=== PATIENT | male | born 1945 | race Caucasian/White ===

== ENCOUNTER → 2023-03-27 08:49 | Outpatient (REF) | payer OTHER, SELFPAY | LOC: MRI 3T 08:49 | PROVIDERS: ATTENDING PHYSICIAN Pain Medicine Interventional Pain Medicine; FAMILY PHYSICIAN Family Medicine | DX: M54.16 Radiculopathy, lumbar region (principal) | CPT/HCPCS: 72148 ==

== ENCOUNTER → 2023-11-17 17:05 | Outpatient (REF) | payer OTHER, SELFPAY | LOC: RAD 17:05 | PROVIDERS: ATTENDING PHYSICIAN Specialist; FAMILY PHYSICIAN Family Medicine | DX: R10.9 Unspecified abdominal pain (principal) | CPT/HCPCS: 76770 ==

== ENCOUNTER → 2024-01-21 14:34 | Outpatient (REF) | payer OTHER, SELFPAY | LOC: RAD 14:34 | PROVIDERS: ATTENDING PHYSICIAN Physical Medicine & Rehabilitation; FAMILY PHYSICIAN Family Medicine | DX: M47.816 Spondylosis without myelopathy or radiculopathy, lumbar region (principal); M54.51 Vertebrogenic low back pain; M48.062 Spinal stenosis, lumbar region with neurogenic claudication; S32.000A Wedge compression fracture of unspecified lumbar vertebra, initial encounter for closed fracture | CPT/HCPCS: 72040; 72072; 72110 ==

== ENCOUNTER → 2024-06-22 12:02 | Outpatient (REF) | payer OTHER, SELFPAY | LOC: RAD 12:02 | PROVIDERS: ATTENDING PHYSICIAN Internal Medicine Cardiovascular Disease; FAMILY PHYSICIAN Family Medicine | DX: R06.02 Shortness of breath (principal); R05.1 Acute cough | CPT/HCPCS: 71046 ==

== ENCOUNTER → 2024-06-30 11:22 | Outpatient (REF) | payer OTHER, SELFPAY | LOC: RCS 11:22 | PROVIDERS: ATTENDING PHYSICIAN Internal Medicine Cardiovascular Disease; FAMILY PHYSICIAN Family Medicine | DX: R06.02 Shortness of breath (principal); I35.0 Nonrheumatic aortic (valve) stenosis | CPT/HCPCS: 93306 ==

== ENCOUNTER 2024-07-26 20:11 | Emergency (ER) | payer OTHER, SELFPAY ==
[2024-07-26 20:13] VITALS: BP 135/73
[2024-07-26 21:29] VITALS: BMI 24.8
[2024-07-26 21:32] VITALS: BP 126/82
[2024-07-26 22:00] VITALS: BP 141/74
--- NOTE | 2024-07-26 22:40 | ED.GENMED ---
History of Present Illness
General
Chief Complaint: Fall
Source: patient
Exam Limitations: none
Time Seen by Provider: 07/26/24 21:54
Nursing documentation reviewed up to this point in time: agreed with
History of Present Illness
History of Present Illness:
The patient is a 78-year-old male who presented following a fall. The fall occurred when he tripped, leading to a head impact. He reports hitting his head without any loss of consciousness. The patient experiences ongoing discomfort and soreness in
the chest area where he expects to find bruising or a possible fracture. X-rays and a CT scan were performed, showing no fractures or abnormalities. The patient is on the anticoagulant medication, Eloquis, due to previous pulmonary embolism and deep
vein thrombosis in the legs and lungs. Despite reporting a heart rate in the 50s, he experiences no concerning symptoms like syncope, and its noted that his typical heart rate ranges in the 60s to 70s. The EKG appears normal, and heart rate findings
are not considered to pose an immediate threat. Chest pain is absent, and the patients physical exam was unremarkable for fractures or neurologic deficits.
Past History
Past History
ED Past Medical History: CVA, GERD, HTN, Hypercholesterolemia, Other (Pericarditis, acute renal failure, C-dif, PE, Hep C (History of), Crohns, GI bleeding. Cirrhosis, Rosacea Colitis, DVT, PE) and Other ( history of pneumonia in, mini stroke,
dysphagia hiatal hernia, ecchymosis, with diverticulitis, arthritis, impaired vision and, depression, and RSD)
ED Past Surgical History: Other (knee surgery and cervical fusion x3, Has plate in the front and aspen in the back. Laparoscopic surgery for hiatal hernia)
Social History
Tobacco: Non-smoker
Alcohol: Occasional
Drug: None
Personal:
Living: with family
Employment: Disabled
Family History
Family History: Other (Mother with ovarian cancer)
Review of Systems
Review of Systems
Allergies reviewed?: Yes
All Other Systems: ROS reviewed and negative except as documented in HPI and ROS
Phy Exam
Physical Exam
Physical Exam:
GENERAL: Alert , in no apparent distress
EYE: pupils equal and reactive
NECK: Supple, no significant adenopathy.
ENT: o/p clr, mmm.
CARDIAC: Regular rate and rhythm .
LUNGS: Clear breath sounds bilaterally, no acute respiratory distress, no wheezes/rales/rhonchi
ABDOMEN: Soft, without focal tenderness, no r/g, no cvat
NEUROLOGICAL: Alert and oriented, no focal neuro deficits
SKIN: Warm and dry, skin intact.
MUSCULOSKELETAL: No edema, well perfused.
PSYCH: Normal and appropriate interaction.
Course
Orders/Labs/Results
Orders:
Orders
07/26/24 20:12
Wrist, Right 3 Views [CR Wrist - Right Min 3 Views] Urgent
Comment:
Reason For Exam: fall, pain
07/26/24 20:17
Electrocardiogram (*1) Urgent
Reason for Study: Chest Pain
07/26/24 20:18
CT Head W/o Iv Contrast Urgent
Comment:
Reason For Exam: Fall on thinners, +head strike
EKG- Treatment ONCE
07/26/24 20:27
Ribs, Left 3 View W/PA Chest CR [CR Ribs-left 3 Vw W/pa Chest] Urgent
Comment:
Reason For Exam: fall, left chest and rib pain
Vital Signs
Initial and Last Documented VS:
Initial Vital Signs
Temp Pulse Resp BP Pulse Ox
98.7 F 61 18 135/73 99
07/26/24 20:13 07/26/24 20:13 07/26/24 20:13 07/26/24 20:13 07/26/24 20:13
Last Documented Vital Signs
Temp Pulse Resp BP Pulse Ox
98.7 F 51 17 141/74 93
07/26/24 20:13 07/26/24 22:15 07/26/24 21:32 07/26/24 22:00 07/26/24 22:15
MDM/Problems Addressed
MDM/Problems Addressed:
78-year-old male presenting after mechanical fall. Did hit his head did not lose consciousness is on Eliquis for DVT. Otherwise does have some right wrist pain and left-sided rib discomfort. X-rays without signs of fracture head CT without
emergent findings or bleed. Patient well-appearing no distress here. EKG without emergent findings. Stable for outpatient management return precautions given.
*Pulse Oximetry
Patient hypoxic: no (94)
*Critical Care Note
Total Time (30-74mins, 75-104mins- exclusive of procedures): Not Applicable
ED Attending Note
-
Portions of this chart may have been created with voice recognition software.� Occasional wrong word or��sound alike� substitutions may have occurred due to the inherent limitations of voice recognition software.
Discharge Plan
Departure
Patient Disposition: Home (Routine Discharge)
Date of Disposition: 07/26/24
Time of Disposition: 22:41
Patient with high blood pressure during this ER visit?: No
Condition: Good
Covid-19: Not Applicable
Discharge Problem:
Fall, Sprain of wrist
Instructions: Preventing falls in adults
Prescriptions:
No Action
dicyclomine 10 MG capsule
10 mg PO TIDPRN PRN (Reason: Crohn's disease)
multivitamin Tablet
1 tab PO DAILY
atorvastatin 10 mg Tablet
10 mg PO DAILY
mupirocin 2 % Ointment
1 applic TOPICAL BID
Patient Comments:
started treatment on wednesday01/17/23 and was taking BID
prednisone 10 mg tablet
40 mg PO TAPER Qty: 20 0RF
Rx Instructions:
4 TABS X 2 DAYS, 3 TABS X 2 DAYS, 2 TABS X 2 DAYS, 1 TAB X 2 DAYS, THEN STOP
docusate sodium [Colace] 100 mg capsule
100 mg PO BID Qty: 1 0RF
Saccharomyces boulardii [Florastor] 250 mg capsule
250 mg PO BID Qty: 1 0RF
morphine 60 mg Tablet Extended Release
60 mg PO Q8H Qty: 21 0RF
Rx Instructions:
decrease to q12h after 5-7 days
ongoing therapy
Dx TKA
oxycodone 10 mg Tablet
10 mg PO Q4H Qty: 30 0RF
Rx Instructions:
ongoing therapy
Dx TKA
Eliquis 5 MG tablet
2.5 mg PO BID Qty: 1 1RF
Rx Instructions:
half tab 2.5mg twice daily x 3 days, then resume full 5mg bid dosing
magnesium hydroxide [Milk of Magnesia] 400 mg/5 mL suspension
30 ml PO HS PRN (Reason: Constipation) Qty: 1 0RF
Referrals:
Darion Olivia DO [Family Provider, Family Practice]
Activity Restrictions/Additional Instructions:
You came to the emergency department today after a fall. Here you had a reassuring assessment. Please rest ice compress and elevate and follow-up closely with your primary care doctor. Return for any worsening, new or concerning symptoms.
Interventions
Interventions:
*Risk Screen - Suicide Last Done: 07/26/24 20:17
*General Assessment Last Done: 07/26/24 21:36
*Neglect/Abuse Screening Last Done: 07/26/24 20:17
*ED- Fall Risk Assessment Last Done: 07/26/24 21:36
*ED COVID-19 Vaccine History Last Done: 07/26/24 21:36
ED-Musculoskeletal Assessment Last Done: 07/26/24 21:43
ED- Neurological Assessment Last Done: 07/26/24 21:43
ED-Skin Assessment Last Done: 07/26/24 21:43
Discharge Date and Time
Print Language: EAST TIMOR[place]
[2024-07-26 23:00] VITALS: BP 151/68
[2024-07-26] MEDS: TYLENOL 650 MG PO (23:28)
== END 2024-07-27 00:07 | disposition home or self-care (01) ==
LOC: EMR 20:11
PROVIDERS: EMERGENCY PHYSICIAN Emergency Medicine; FAMILY PHYSICIAN Family Medicine
DX: S63.501A Unspecified sprain of right wrist, initial encounter (principal); R07.81 Pleurodynia; W01.0XXA Fall on same level from slipping, tripping and stumbling without subsequent striking against object, initial encounter; E78.00 Pure hypercholesterolemia, unspecified; I10 Essential (primary) hypertension; Z86.19 Personal history of other infectious and parasitic diseases; Z86.711 Personal history of pulmonary embolism; Z86.718 Personal history of other venous thrombosis and embolism; Z86.73 Personal history of transient ischemic attack (TIA), and cerebral infarction without residual deficits; Z79.01 Long term (current) use of anticoagulants
CPT/HCPCS: 99284; 70450; 71101; 73110; 93005

== ENCOUNTER 2024-10-05 07:57 | Inpatient (IN) | payer OTHER, SELFPAY ==
[2024-10-03 17:05] VITALS: BP 111/72
[2024-10-03 17:08] VITALS: BP 111/72
[2024-10-03 17:10] VITALS: BMI 24.0
[2024-10-03 18:00] VITALS: BP 118/71
[2024-10-03] MEDS: ROXICODONE 5 MG PO (19:46)
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
[2024-10-03 20:31] VITALS: BP 178/82
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
[2024-10-03 23:00] VITALS: BP 183/76; BMI 23.2
[2024-10-03] MEDS: TOPROL XL 25 MG PO (23:13)
[2024-10-03] MEDS: MS CONTIN (EXTENDED RELEASE) 60 MG PO (23:13)
--- NOTE | 2024-10-04 00:48 | PTCARENOTE ---
Received pt from ER,alert oriented,tolerated transfer well.Pt mantained on bedrest.Physical assessment preformed,VS stable.pt keeping right leg in flexed position,feels best.Medicated with MS contin,this is a sceduled med for this hour,pt oriented
to room.sleepng.
--- NOTE | 2024-10-04 04:40 | DOWNTIME ---
There was a [employer] Client Assembly Instructions Writer Downtime on 10/04/2024 from 0100 to 10/04/2024 at 0235. Downtime documentation of patient's care, including medication administrations, has been reconciled in the electronic record per guidelines. Refer to the
patient's paper chart under the miscellaneous tab to see printed paper medication records and downtime forms.
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
[2024-10-04 07:51] VITALS: BP 145/72
[2024-10-04] MEDS: DELTASONE 10 MG PO (08:26)
[2024-10-04] MEDS: THERAGRAN 1 TABLET PO (08:26)
[2024-10-04] MEDS: ELIQUIS 5 MG PO ×2 (08:26→21:02)
[2024-10-04] MEDS: TOPROL XL 50 MG PO (08:26)
[2024-10-04] MEDS: LIPITOR 10 MG PO (08:26)
[2024-10-04] MEDS: ROXICODONE 10 MG PO ×4 (08:30→23:43)
[2024-10-04 09:07] LABS: Hematocrit 36.3 % (39.0-52.0); Hemoglobin 12.5 g/dL (13.0-18.0); Mean Corp Hgb Conc. 34.4 g/dL (33.0-37.0); Mean Corpuscular Volume 96.5 fL (80.0-94.0); Platelet Count 150 10^3/uL (130-400); Red Cell Dist. Width 13.1 % (11.5-14.5)
[2024-10-04 09:33] LABS: Blood Urea Nitrogen 30 mg/dl (9-20); Calcium 9.2 mg/dl (8.4-10.2); Carbon Dioxide 23 mmol/L (22-30); Chloride 111 mmol/L (98-107); Estimated Creatinine Clearance 58 ml/min; Glucose 92 mg/dl (70-99); Potassium 4.2 mmol/L (3.5-5.1); Sodium 140 mmol/L (135-145); eGFR > 60.00
[2024-10-04] MEDS: MS CONTIN (EXTENDED RELEASE) 60 MG PO ×2 (09:43→21:02)
[2024-10-04 10:10] VITALS: BP 138/102; O2SAT 97
[2024-10-04 10:11] VITALS: BP 138/102; PULSE 64
--- NOTE | 2024-10-04 10:37 | CM ---
Addendum entered by Josh Rhodes 10/04/24 15:15:
Spoke w/ patient, agreeable to referrals in [place]. Referrals sent to [facility] and [facility]
Will need insurance auth
Original Note:
Patient seen bedside, initial assessment completed. Patient is a 78-year-old male with past medical history significant for hypertension, hyperlipidemia, Crohn's disease, Rheumatoid arthritis, chronic kidney disease IIIa and depression/anxiety who
presented to [facility] ED for evaluation of right hip pain and skin tear to right elbow.
Patient resides w/ spouse and their adult son in a 2STH, 6 steps to enter from the outside. 12 or 13 stairs to the second floor where bed and bath are located. Patient is independent w/ ambulation, no device required. Patient has a RW and canes but
does not use at this time. Independent w/ ADLs. Inpatient rehab in the past following hip replacement. Patient doesn't recall facility name but it is located in [place]. No HC hx reported.
Address, point of contact and insurance verified
PCP: Darion Olivia
Pharmacy: [facility]
Patient admitted obs status. ELLIS form verbally reviewed, copy provided, copy on chart
Therapy currently rec SNF at d/c. Patient aware of rehab needs and is agreeable, no preferences at this time
Plan: SNF recommendation
--- NOTE | 2024-10-04 13:55 | W.PN.HOSP.TC ---
Today's Communication/Plan
-
discharge planning for snf rehab
Assessment / Plan
Assessment / Plan
# Periprosthetic right hip fracture
Rt hip/Rt femur x-ray: Right hip and right knee arthroplasty is in anatomic position.
Rib x-ray: No findings to confirm recent right rib fracture. Please see above comments.
RLE CT: Essentially nondisplaced spiral fracture predominantly through the medial and posterior aspect of the subtrochanteric portion of the proximal right femur about the femoral component of the
patient's right hip arthroplasty, limited by beam hardening artifact from the arthroplasty. Please see above comments.
No displacement of fracture segments, as fracture line runs in bone with prosthetic aspen in place
Pain control medication adjusted
Discharge planning for snf rehab
#hypertension
- continue metoprolol
#hyperlipidemia
- continue atorvastatin
#Crohn's disease
#Rheumatoid arthritis
- continue prednisone and home pain regimen
#Hx recurrent PE
- continue Eliquis
#chronic kidney disease IIIa
#depression/anxiety
Code status: full code
DVT prophylaxis: Eliquis
Anticipated Discharge: Today
Subjective/Interval History
-
Date of Service: October 04, 2024
Complaining of some right hip/thigh pain, soreness
no other issues
Objective Data
-
Labs:
Laboratory Results
10/04/24
08:51
WBC 8.8
Hgb 12.5 L
Hct 36.3 L
Plt Count 150
Sodium 140
Potassium 4.2
Chloride 111 H
Carbon Dioxide 23
BUN 30 H
Creatinine 0.9
Glucose 92
Calcium 9.2
Vital Signs:
Vital Signs
Temp Pulse Resp BP Pulse Ox
98.1 F 63 14 145/72 95
10/04/24 07:51 10/04/24 08:26 10/04/24 07:51 10/04/24 08:26 10/04/24 11:13
I&O
10/03/24 10/04/24 10/05/24
06:59 06:59 06:59
Intake Total 120 / 120
Output Total 350 / 350
Balance -230 / -230
Review of Systems
-
Respiratory: Reports No Symptoms
Cardiac: Reports No Symptoms
Abdomen/GI: Reports No Symptoms
Physical Exam
-
General: No Apparent Distress and Comfortable
HEENT: Negative Oxygen
Respiratory: Clear to Auscultation
Cardiac: Regular Rhythm and S1/S2; Negative Murmur or Rub
GI: Soft, Nontender, Nondistended and Normal Bowel Sounds
Musculoskeletal: No Edema
Neuro: Awake, Alert, Oriented, No Motor Deficits and Nonfocal/Grossly Intact
Psych: Calm
[2024-10-04 15:47] VITALS: BP 108/61
[2024-10-04] MEDS: TOPROL XL PO (21:00)
[2024-10-04 23:45] VITALS: BP 121/63
[2024-10-05] MEDS: ROXICODONE 10 MG PO (07:13)
[2024-10-05] MEDS: LIPITOR 10 MG PO (07:15)
[2024-10-05] MEDS: DELTASONE 10 MG PO (07:15)
[2024-10-05] MEDS: THERAGRAN 1 TABLET PO (07:15)
[2024-10-05] MEDS: ELIQUIS 5 MG PO (07:15)
[2024-10-05] MEDS: TOPROL XL 50 MG PO (07:15)
[2024-10-05 07:19] VITALS: BP 124/67
[2024-10-05] MEDS: MS CONTIN (EXTENDED RELEASE) 60 MG PO (09:20)
--- NOTE | 2024-10-05 10:29 | CM ---
Addendum entered by Josh Rhodes 10/05/24 12:52:
[facility] does not accept patient's insurance.
[facility] does not have any beds today
Updated patient, agreeable to [facility]. CM called [facility] ( ) to initiate auth, spoke w/ [place]ina. CM was transferred to nurse, Juana, for verbal clinical review.
Auth approved beginning today, 10/05 next review date is 10/09
Reference # [id number]
Updated [facility] w/ auth info
Updated hospitalist, will place d/c
Patient will need ambulance transport, forms on chart
IMM verbally reviewed, copy provided, copy on chart
[facility]
Report: [phone]

Plan: [facility]
Original Note:
SNF referrals reviewed. [facility] declined due to inability to accept patient's insurance. [facility] accepted, [facility], pending determination. Reached out to [facility] to review.
Updated patient bedside, patient agreeable to [facility] but would like for CM to refer to [facility] in [place] as he was there before. Referral sent in [facility]. CM reached out to [facility] to review referral
Plan: SNF, pending accepting facility and insurance auth
[2024-10-05 11:23] VITALS: BP 143/79; PULSE 58
[2024-10-05] MEDS: ROXICODONE 15 MG PO (11:42)
[2024-10-05 12:00] VITALS: BP 143/79; PULSE 58
--- NOTE | 2024-10-05 13:21 | W.PN.HOSP.TC ---
Today's Communication/Plan
-
d/c snf rehab
Assessment / Plan
Assessment / Plan
# Periprosthetic right hip fracture
Rt hip/Rt femur x-ray: Right hip and right knee arthroplasty is in anatomic position.
Rib x-ray: No findings to confirm recent right rib fracture. Please see above comments.
RLE CT: Essentially nondisplaced spiral fracture predominantly through the medial and posterior aspect of the subtrochanteric portion of the proximal right femur about the femoral component of the
patient's right hip arthroplasty, limited by beam hardening artifact from the arthroplasty. Please see above comments.
No displacement of fracture segments, as fracture line runs in bone with prosthetic aspen in place
Pain control medication adjusted
Orthopedic surgery recommended for patient to have right hip x-ray before office visit in 2 weeks. Physical prescription provided for SNF to arrange follow-up right hip x-ray.
#hypertension
- continue metoprolol
#hyperlipidemia
- continue atorvastatin
#Crohn's disease
#Rheumatoid arthritis
- continue prednisone and home pain regimen
#Hx recurrent PE
- continue Eliquis
#chronic kidney disease IIIa
#depression/anxiety
Code status: full code
DVT prophylaxis: Eliquis
More than 30 minutes spent in discharge including
Final examination of the patient
Summarizing hospital stay
Instructions for continuing care to all relevant caregivers
Preparation of discharge records, prescriptions, and referral forms
Total time spent (in minutes): 39 mins
Anticipated Discharge: Today
Subjective/Interval History
-
Date of Service: October 05, 2024
Complaining some diffuse body ache with most pronounced pain at right hip
Objective Data
-
Vital Signs:
Vital Signs
Temp Pulse Resp BP Pulse Ox
98.4 F 64 16 124/67 94
10/04/24 23:45 10/05/24 07:19 10/05/24 07:19 10/05/24 07:19 10/05/24 11:32
I&O
10/04/24 10/05/24 10/06/24
06:59 06:59 06:59
Intake Total 120 / 120 480 / 480
Output Total 350 / 350 650 / 650
Balance -230 / -230 -170 / -170
Review of Systems
-
Respiratory: Reports No Symptoms
Cardiac: Reports No Symptoms
Abdomen/GI: Reports No Symptoms
Physical Exam
-
General: Negative Pain
HEENT: Negative Oxygen
Neuro: Awake, Alert, Oriented and No Motor Deficits
[2024-10-05 15:20] VITALS: BP 119/73
--- NOTE | 2024-10-06 16:01 | W.DCSUMMARY ---
Discharge Summary
Discharge Data
Date of Admission: 10/05/24
Date of Discharge: 10/05/24
-
Pending Results: No
Hospital Course
Discharging Physician : Dr Paul Panchal
Disposition : SNF rehab
Primary care physician : Dr Darion Olivia
Principal Discharge diagnosis :
Right femur periprosthetic fracture from mechanical fall
Chronic Discharge diagnosis :
Essential hypertension
Hyperlipidemia
Crohn's disease
Reported arthritis
History of pulmonary embolism
Chronic kidney disease stage IIIa
Depression is anxiety
Hospital Course :
Patient is a 78-year-old male with no mentioned past medical history was brought into ER after head fall. Patient was having right hip pain and x-ray of the hip showed a periprosthetic fracture involving right femur bone. Orthopedic surgery was
involved in care and evaluated patient. A follow-up CT of right lower extremity was done which confirmed nondisplaced spiral fracture of medial right femur running around the femoral component of the right hip arthroplasty. Orthopedic surgery
recommended toe-touch weightbearing for the right extremity and patient was cleared for discharge for [facility]pc facility rehab. Patient will follow-up with orthopedic surgery in office for repeat x-ray.
Important imaging findings :
None
Procedure findings :
None
Discharge Plan
-
Patient Disposition: Jail/SNF
Discharge Diagnosis/Procedures: Right hip periprosthetic femur fracture
Condition: Fair
Diet: Regular
Activity: As tolerated
Driving Restrictions: No driving
Bathing Restrictions: OK to Shower
Referrals:
Darion Olivia DO [Family Provider, Family Practice] - in one week
Nelson Gamez MD [Active, Orthopedics] - in two to four weeks
Prescriptions:
New
morphine [Avinza] 60 mg capsule, ER multiphase 24 hr
60 mg PO BID Qty: 6 0RF
oxycodone 10 mg tablet
10 mg PO Q6HPRN PRN (Reason: Breakthrough pain) Qty: 12 0RF
(DME) Right hip Xray
See Rx Instructions .Route .MEDSUPPLY Qty: 1 0RF
Rx Instructions:
Right hip XRAY in 2 weeks
Dx : right femur periprosthetic fracture
Forward result to Dr Nelson Gamez's office
Continued
multivitamin Tablet
1 tab PO DAILY
atorvastatin 10 mg Tablet
10 mg PO DAILY
prednisone 10 mg tablet
10 mg PO DAILY
Eliquis 5 MG tablet
5 mg PO BID
metoprolol succinate 50 mg tablet extended release 24 hr
50 mg PO DAILY
metoprolol succinate 50 mg tablet extended release 24 hr
25 mg PO HS
Discontinued
morphine 60 mg tablet extended release
60 mg PO Q12H
oxycodone 10 mg tablet
10 mg PO Q6HPRN PRN (Reason: breakthrough pain)
Rx Instructions:
ongoing therapy
Dx TKA
Discharge Orders:
Discharge Patient (As Directed); Ordered 10/05/24
Ordered By: Paul Panchal
Discharge Date and Time
Discharge Date/Time: 10/05/24 16:02
Print Language: EGYPTIAN
== END 2024-10-05 16:02 | DRG 536 ==
LOC: 4 EAST ACU 07:57
PROVIDERS: ADMITTING PHYSICIAN Internal Medicine; ATTENDING PHYSICIAN Hospitalist; CONSULT PHYSICIAN Orthopaedic Surgery; EMERGENCY PHYSICIAN Emergency Medicine; FAMILY PHYSICIAN Family Medicine
DX: S72.24XA Nondisplaced subtrochanteric fracture of right femur, initial encounter for closed fracture (principal); M97.01XA Periprosthetic fracture around internal prosthetic right hip joint, initial encounter; K50.90 Crohn's disease, unspecified, without complications; V18.4XXA Pedal cycle driver injured in noncollision transport accident in traffic accident, initial encounter; Y93.55 Activity, bike riding; I12.9 Hypertensive chronic kidney disease with stage 1 through stage 4 chronic kidney disease, or unspecified chronic kidney disease; N18.31 Chronic kidney disease, stage 3a; E78.00 Pure hypercholesterolemia, unspecified; F32.A Depression, unspecified; F41.9 Anxiety disorder, unspecified; S51.011A Laceration without foreign body of right elbow, initial encounter; M06.9 Rheumatoid arthritis, unspecified; K21.9 Gastro-esophageal reflux disease without esophagitis; K74.60 Unspecified cirrhosis of liver; Z96.651 Presence of right artificial knee joint; Z86.73 Personal history of transient ischemic attack (TIA), and cerebral infarction without residual deficits; Z85.46 Personal history of malignant neoplasm of prostate; Z86.711 Personal history of pulmonary embolism; Z79.01 Long term (current) use of anticoagulants; Z79.52 Long term (current) use of systemic steroids
CPT/HCPCS: 12002; 71101; 73502; 73552; 73700; 80048; 85027; 97110; 97163; 97167; 97530; 99285

== ENCOUNTER 2024-11-14 21:27 | Inpatient (IN) | payer OTHER, SELFPAY ==
[2024-11-14] VITALS (11 sets, daily range): BP systolic 116–153; BP diastolic 69–90; BMI 19.9; BMI 19.5
[2024-11-14 15:54] LABS: Hematocrit 40.0 % (39.0-52.0); Hemoglobin 13.6 g/dL (13.0-18.0); Mean Corp Hgb Conc. 34.0 g/dL (33.0-37.0); Mean Corpuscular Volume 94.1 fL (80.0-94.0); Nucleated Red Blood Cells % 0 % (-); Platelet Count 416 10^3/uL (130-400); Red Cell Dist. Width 12.6 % (11.5-14.5)
[2024-11-14 16:00] LABS: INR 1.45; PT 17.9 Sec (11.4-14.6)
[2024-11-14 16:01] LABS: APTT 51.8 Sec (23.4-35.0)
--- NOTE | 2024-11-14 16:03 | ED.GENMED ---
ED Provider Triage
<Jian Anton MD, Resident - Last Filed: 11/14/24 17:19>
-
Patient seen by provider in Triage?: Seen in Triage
History of Present Illness
<Jian Anton MD, Resident - Last Filed: 11/14/24 17:19>
General
Chief Complaint: Extremity Pain (non-traumatic)
Source: patient
Exam Limitations: none
Time Seen by Provider: 11/14/24 15:39
History of Present Illness
History of Present Illness:
71-year-old male who presents from home via EMS with severe left-sided upper extremity pain that started 2 days ago, has gotten progressively worse, sharp in character. Associated with shortness of breath and aggravated on movement, no relieving
factors. No numbness, tingling, weakness, chest pain, abdominal pain, gait dysfunction, nausea, vomiting, headache, vision changes. He has a previous cardiac history of A-fib, Hypertension, and hyperlipidemia. He is on eliquis.
Past History
<Jian Anton MD, Resident - Last Filed: 11/14/24 17:19>
Past History
ED Past Medical History: CVA, GERD, HTN, Hypercholesterolemia, Other (Pericarditis, acute renal failure, C-dif, PE, Hep C (History of), Crohns, GI bleeding. Cirrhosis, Rosacea Colitis, DVT, PE) and Other ( history of pneumonia in, mini stroke,
dysphagia hiatal hernia, ecchymosis, with diverticulitis, arthritis, impaired vision and, depression, and RSD)
ED Past Surgical History: Other (knee surgery and cervical fusion x3, Has plate in the front and aspen in the back. Laparoscopic surgery for hiatal hernia)
Social History
Tobacco: Non-smoker
Alcohol: Occasional
Drug: None
Personal:
Living: with family
Employment: Disabled
Family History
Family History: Other (Mother with ovarian cancer)
Review of Systems
<Jian Anton MD, Resident - Last Filed: 11/14/24 17:19>
Review of Systems
All Other Systems: ROS reviewed and negative except as documented in HPI and ROS
Phy Exam
<Jian Anton MD, Resident - Last Filed: 11/14/24 17:19>
General Physical Exam
General Presentation: moderate distress
General Skin: warm and dry
General Habitus: normal
General Mental: alert
Pulmonary Exam
Pulmonary Exam: lungs clear, no respiratory distress, no rales and no rhonchi
Gastrointestinal Exam
Gastrointestinal Exam: normal bowel sounds, non tender, soft and non distended
Neurological Exam
Neurological Exam: alert
Musculoskeletal Exam
Musculoskeletal Exam: other (severe tenderness of the left upper extremity, erythematous, decreased range of motion at elbow due to pain, distal pulses 2+, decreased capillary refill)
Course
<Jian Anton MD, Resident - Last Filed: 11/14/24 17:19>
Orders/Labs/Results
Orders:
Orders
11/14/24 15:32
Electrocardiogram (*1) Urgent
Reason for Study: Tachycardia
EKG- Treatment ONCE
11/14/24 15:40
CRP [C-Reactive Protein] Urgent
Complete Blood Count/With Diff Urgent
Comprehensive Metabolic Panel Urgent
Erythrocyte Sed Rate Urgent
Lactic Acid Urgent
PT/INR [Prothrombin Time] Urgent
Is patient on Coumadin/Warfarin?: No
Comment: [email or web address]
PTT Urgent
Blood Culture Urgent
KYRIE Source: Blood/Venous
Specimen Description:
11/14/24 15:46
Blood Culture Urgent
KYRIE Source: Blood/Venous
Specimen Description:
11/14/24 16:00
CT Upper Ext Angio W/wo Iv Con Urgent
Comment:
Reason For Exam: painful left arm
Morphine Sulfate 4 mg IV Q4HPRN PRN
11/14/24 18:00
CeFAZolin 1 GRAM [Ancef] 1 gram in 5 ml IV Q8H
Abnormal Lab Results
11/14/24
15:40
WBC 14.2 H 10^3/uL
(4.8-10.8)
RBC 4.25 L 10^6/uL
(4.70-6.10)
MCV 94.1 H fL
(80.0-94.0)
MCH 32.0 H pg
(27.0-31.0)
Plt Count 416 H 10^3/uL
(130-400)
Abs Immat Gran (auto) 0.1 H 10^3/uL
(0-0.05)
Absolute Neuts (auto) 10.6 H 10^3/uL
(1.4-6.5)
Absolute Monos (auto) 1.4 H 10^3/uL
(0.1-0.6)
Immature Gran % 0.8 H %
(0-0.5)
Lymphocytes % 13.7 L %
(20.5-51.1)
Monocytes % 9.8 H %
(1.7-9.3)
ESR 80 H mm/hour
(0-20)
PT 17.9 H Sec
(11.4-14.6)
APTT 51.8 H Sec
(23.4-35.0)
Carbon Dioxide 21 L mmol/L
(22-30)
Glucose 109 H mg/dl
(70-99)
Lactic Acid 2.9 H mmol/L
(0.7-2.0)
Total Bilirubin 2.8 H mg/dl
(0.2-1.3)
C-Reactive Protein > 270.00 H mg/L
(0.0-10.00)
11/14/24 15:40
11/14/24 15:40
Vital Signs
Initial and Last Documented VS:
Initial Vital Signs
Temp Pulse Resp BP Pulse Ox
99.8 F 120 16 147/87 98
11/14/24 15:39 11/14/24 15:39 11/14/24 15:39 11/14/24 15:39 11/14/24 15:39
Last Documented Vital Signs
Temp Pulse Resp BP Pulse Ox
99.8 F 120 16 132/89 99
11/14/24 15:39 11/14/24 16:00 11/14/24 16:02 11/14/24 16:00 11/14/24 16:18
<Rosalino Almaraz, DO - Last Filed: 11/14/24 16:27>
Orders/Labs/Results
Orders:
Orders
11/14/24 15:32
Electrocardiogram (*1) Urgent
Reason for Study: Tachycardia
EKG- Treatment ONCE
11/14/24 15:40
CRP [C-Reactive Protein] Urgent
Complete Blood Count/With Diff Urgent
Comprehensive Metabolic Panel Urgent
Erythrocyte Sed Rate Urgent
Lactic Acid Urgent
PT/INR [Prothrombin Time] Urgent
Is patient on Coumadin/Warfarin?: No
Comment: [email or web address]
PTT Urgent
Blood Culture Urgent
KYRIE Source: Blood/Venous
Specimen Description:
11/14/24 15:46
Blood Culture Urgent
KYRIE Source: Blood/Venous
Specimen Description:
11/14/24 16:00
CT Upper Ext Angio W/wo Iv Con Urgent
Comment:
Reason For Exam: painful left arm
Morphine Sulfate 4 mg IV Q4HPRN PRN
11/14/24 18:00
CeFAZolin 1 GRAM [Ancef] 1 gram in 5 ml IV Q8H
Abnormal Lab Results
11/14/24
15:40
WBC 14.2 H 10^3/uL
(4.8-10.8)
RBC 4.25 L 10^6/uL
(4.70-6.10)
MCV 94.1 H fL
(80.0-94.0)
MCH 32.0 H pg
(27.0-31.0)
Plt Count 416 H 10^3/uL
(130-400)
Abs Immat Gran (auto) 0.1 H 10^3/uL
(0-0.05)
Absolute Neuts (auto) 10.6 H 10^3/uL
(1.4-6.5)
Absolute Monos (auto) 1.4 H 10^3/uL
(0.1-0.6)
Immature Gran % 0.8 H %
(0-0.5)
Lymphocytes % 13.7 L %
(20.5-51.1)
Monocytes % 9.8 H %
(1.7-9.3)
ESR 80 H mm/hour
(0-20)
PT 17.9 H Sec
(11.4-14.6)
APTT 51.8 H Sec
(23.4-35.0)
Carbon Dioxide 21 L mmol/L
(22-30)
Glucose 109 H mg/dl
(70-99)
Lactic Acid 2.9 H mmol/L
(0.7-2.0)
Total Bilirubin 2.8 H mg/dl
(0.2-1.3)
C-Reactive Protein > 270.00 H mg/L
(0.0-10.00)
11/14/24 15:40
11/14/24 15:40
Vital Signs
Initial and Last Documented VS:
Initial Vital Signs
Temp Pulse Resp BP Pulse Ox
99.8 F 120 16 147/87 98
11/14/24 15:39 11/14/24 15:39 11/14/24 15:39 11/14/24 15:39 11/14/24 15:39
Last Documented Vital Signs
Temp Pulse Resp BP Pulse Ox
99.8 F 120 16 132/89 99
11/14/24 15:39 11/14/24 16:00 11/14/24 16:02 11/14/24 16:00 11/14/24 16:18
<Jian Anton MD, Resident - Last Filed: 11/14/24 17:19>
MDM/Problems Addressed
Differential Diagnosis Includes:
acute limb ischemia, DVT, cellulitis, fracture of the left upper extremity, compartment syndrome
MDM/Problems Addressed:
79 year old male with severe left upper extremity tenderness, decreased range of motion, and decreased capillary refill on physical exam. Tachycardic on exam and in visible distress.
- CMP and CBC show elevated WBC of 14.2, lactate level of 2.9, potential infection will order empiric cefazolin
- Ordered Chest CT with angiogram
- Ordered morphine for pain control
<Jian Anton MD, Resident - Last Filed: 11/14/24 17:19>
*Pulse Oximetry
SaO2: 99
Oxygen Mode of Delivery: Room air
*Critical Care Note
Total Time (30-74mins, 75-104mins- exclusive of procedures): Not Applicable
<Rosalino Almaraz, DO - Last Filed: 11/14/24 16:27>
*Radiology
Radiology exam reviewed: radiology read reviewed
*Pulse Oximetry
Patient hypoxic: no
ED Attending Note
<Jian Anton MD, Resident - Last Filed: 11/14/24 17:19>
-
Portions of this chart may have been created with voice recognition software.� Occasional wrong word or��sound alike� substitutions may have occurred due to the inherent limitations of voice recognition software.
<Rosalino Almaraz, DO - Last Filed: 11/14/24 16:27>
ED Attending Note
Patient seen and examined by attending physician: Yes
I performed a history and physical exam of patient and discussed management with resident, I reviewed resident's note and agree with documented findings and plan of care.: Yes
ED Attending Note:
Seen with resident examined independently 79-year-old male acute onset of left upper extremity pain worse with movement believes he possibly had his arm trapped in the bed, takes Eliquis, states he has been taking his meds, here he does have a
palpable radial pulse some warmth, question diminished cap refill diffuse tenderness up into the mid humerus region
Differential includes cellulitis, myositis, arterial insufficiency
Plan analgesia IV fluids antibiotics CT scan to rule out arterial insufficiency
Discharge Plan
Departure
Prescriptions:
No Action
multivitamin Tablet
1 tab PO DAILY
atorvastatin 10 mg Tablet
10 mg PO DAILY
prednisone 10 mg tablet
10 mg PO DAILY
Eliquis 5 MG tablet
5 mg PO BID
metoprolol succinate 50 mg tablet extended release 24 hr
50 mg PO DAILY
metoprolol succinate 50 mg tablet extended release 24 hr
25 mg PO HS
morphine [Avinza] 60 mg capsule, ER multiphase 24 hr
60 mg PO BID Qty: 6 0RF
oxycodone 10 mg tablet
10 mg PO Q6HPRN PRN (Reason: Breakthrough pain) Qty: 12 0RF
(DME) Right hip Xray
See Rx Instructions .Route .MEDSUPPLY Qty: 1 0RF
Rx Instructions:
Right hip XRAY in 2 weeks
Dx : right femur periprosthetic fracture
Forward result to Dr Nelson Gamez's office
Interventions
Interventions:
*Risk Screen - Suicide Last Done: 11/14/24 15:43
*General Assessment Last Done: 11/14/24 15:43
*Neglect/Abuse Screening Last Done: 11/14/24 15:43
*ED- Fall Risk Assessment Last Done: 11/14/24 15:43
*ED COVID-19 Vaccine History Last Done: 11/14/24 15:43
*ED Influenza Vaccine History Last Done: 11/14/24 15:43
ED-Skin Assessment Last Done: 11/14/24 15:52
Discharge Date and Time
Print Language: GEORGIAN
[2024-11-14 16:05] LABS: ALT (SGPT) < 10 U/L (0-50); AST (SGOT) 19 U/L (17-59); Albumin 3.9 g/dl (3.5-5.0); Alkaline Phosphatase 116 U/L (38-126); Blood Urea Nitrogen 16 mg/dl (9-20); Calcium 9.9 mg/dl (8.4-10.2); Carbon Dioxide 21 mmol/L (22-30); Chloride 102 mmol/L (98-107); Estimated Creatinine Clearance 51 ml/min; Glucose 109 mg/dl (70-99); Potassium 4.1 mmol/L (3.5-5.1); Sodium 135 mmol/L (135-145); Total Protein 6.6 g/dl (6.3-8.2); eGFR > 60.00
[2024-11-14] MEDS: MORPHINE SULFATE 4 MG IV ×2 (16:05→22:35)
[2024-11-14 16:24] LABS: C-Reactive Protein > 270.00 mg/L (0.0-10.00)
[2024-11-14] MEDS: ANCEF 5 IV (17:41)
[2024-11-14] MEDS: DILAUDID 1 MG IV (19:10)
[2024-11-14] MEDS: NSS 1000 IV ×2 (19:11→22:35)
--- NOTE | 2024-11-14 19:58 | HPS.HSE ---
Family Physician
-
Family Physician: NOT KNOW UNKNOWN - PT DOES
Chief Complaint
-
New left upper extremity pain
History of Present Illness
This is a 79-year-old with multiple medical comorbidities including history of PE on anticoagulation, Crohn's disease in remission, hypertension, hyperlipidemia, GERD, who was recently found to have a periprosthetic fracture involving right femur
bone, nondisplaced spiral fracture of medial right femur running around the femoral component of the right hip arthroplasty, nonsurgically managed with toe-touch weightbearing for the right extremity presenting with left upper extremity pain.
Has pain and swelling to left hand and lower arm, extremity warm to the touch, no fevers or chills. Family aware that he is mildly altered since yesterday but alert and oriented x 3 here. He denies any acute injuries. He denies any falls. He
feels warm to the touch in the emergency department and appears quite uncomfortable.
In the emergency department patient was afebrile, blood pressure was 127/88, he was tachycardic to 126, he was satting 96% on room air.
White count was 14.2, hemoglobin 13.6 platelet 416. Electrolytes BUN and creatinine were all within normal range. His lactic acid was elevated at 2.9. ESR was 80.
Medical History
Past Medical History
Past Medical History: Reports Other
Additional Past Medical History:
hypertension
hyperlipidemia
Crohn's disease
Rheumatoid arthritis
chronic kidney disease IIIa
depression/anxiety
Hx prostate cancer
Hx hepatitis C
Hx pulmonary embolism
Past Surgical History: Reports Other
Additional Past Surgical History:
Right knee x2
Left knee
Stomach surgery (inverted)
Hernia repair
Cervical fusion
Broken wrist
Elbow fracture x2
Right hand surgery 2022
Cataract-lens implant, right 11/2022
Social History
Tobacco: Non-smoker
Alcohol: Occasional
Drug: Marijuana (medical marijuana, smokes nightly for sleep )
Personal:
Living: With Family
Family History
Family History: Not pertinent
Allergies / Home Medications
Allergies reflects when Allergies were last updated in [email or web address].
Home Medications with original date entered in [email or web address]
Allergy/Medication List:
Allergies
Allergy/AdvReac Type Severity Reaction Status Date / Time
No Known Allergies Allergy Verified 07/26/24 20:17
Home Medications
atorvastatin 10 mg tablet 10 mg PO DAILY 12/09/22
multivitamin 1 tab PO DAILY 12/09/22
apixaban 5 mg tablet (Eliquis) 5 mg PO BID 10/03/24
metoprolol succinate 50 mg tablet,extended release 24 hr 25 mg PO HS 10/03/24
metoprolol succinate 50 mg tablet,extended release 24 hr 50 mg PO DAILY 10/03/24
morphine 60 mg tablet,extended release 60 mg PO Q12H long acting pain med 10/03/24
oxycodone 10 mg tablet 10 mg PO Q6HPRN PRN breakthrough pain 10/03/24
prednisone 10 mg tablet 10 mg PO DAILY inflammation 10/03/24
Review of Systems
-
Constitutional: Reports No Symptoms
EENT: Reports No Symptoms
Respiratory: Reports No Symptoms
Cardiac: Reports No Symptoms
Abdomen/GI: Reports No Symptoms
: Reports No Symptoms
Musculoskeletal: Reports Joint Pain
Skin: Reports Rash
Neurological: Reports No Symptoms
Endocrine: Reports No Symptoms
Hematologic/Lymphatic: Reports No Symptoms
Psych: Reports No Symptoms
Physical Exam
Vital Signs
Vital Signs
Temp Pulse Resp BP Pulse Ox
98.4 F 126 10 127/88 96
11/14/24 19:17 11/14/24 18:45 11/14/24 18:45 11/14/24 18:00 11/14/24 18:45
Physical Exam
General: Well Developed, Well Nourished and No Apparent Distress
HEENT: NormoCephalic, Moist mucous membranes and Atraumatic
Respiratory: Clear and Non Labored Respirations
Cardiac: S1/S2 and Regular Rhythm
Breast: Deferred by me
GI: Soft, Non Tender, Non Distended and Normal Bowel Sounds; No Organomegaly
Rectal: Deferred by Provider
Genito-urinary: Deferred by me
Musculoskeletal: No Clubbing, No Cyanosis, No Edema and Other (Entire left upper extremity quite tender to the touch. There is area of erythema on the dorsum of the left hand including the left wrist. There is also erythema of the left palm.
Unable to test range of motion which appears limited due to extent of pain. minimal edema. Elbow right sh)
Skin: Warm
Neuro: Awake, AO x 3 and Nonfocal/grossly intact
Psych: Calm and Intact Judgment/Insight
Laboratory Results
-
11/14/24 15:40
11/14/24 15:40
Laboratory Results
PT 17.9 Sec (11.4-14.6) H 11/14/24 15:40
INR 1.45 11/14/24 15:40
APTT 51.8 Sec (23.4-35.0) H 11/14/24 15:40
Lactic Acid 2.9 mmol/L (0.7-2.0) H 11/14/24 15:40
Total Bilirubin 2.8 mg/dl (0.2-1.3) H 11/14/24 15:40
AST 19 U/L (17-59) 11/14/24 15:40
ALT < 10 U/L (0-50) 11/14/24 15:40
Alkaline Phosphatase 116 U/L (38-126) 11/14/24 15:40
Data Reviewed
-
Lab Data: Labs Reviewed by me
Old Records: Reviewed
Impression/Plan
-
IMPRESSION:
73-year-old with past medical history significant for hyperlipidemia, hypertension, PE on anticoagulation, history of Crohn's disease, rheumatoid arthritis presented to the emergency department with left upper extremity pain. There is moderate to
swelling and redness of the wrist and distal humerus. Pain appears out of proportion to exam. There is no significant effusion noted. He does have leukocytosis to 14.2. Lactic acid is elevated 2.9. address of his labs are unremarkable except for
markedly elevated inflammatory markers with ESR of 80 and a CRP to as high has 200. Afebrile here and hemodynamically stable.
PLAN:
Left upper extremity pain -cellulitis versus inflammatory or infectious arthritis. Cannot rule out component of complex regional pain syndrome playing a role.
-Admit to [facility]
-Blood cultures sent
- xray of forearm wrist pending
- No history of MRSA, no diabetes, however on chronic prednisone, will treat with IV vancomycin and ceftriaxone 2g daily to cover for possible joint infection although cellulitis seems more likely versus inflammatory arthritis.
- Check rheumatoid factor, LISA
- Continue prednisone 10 mg daily
- Pain control
- ID consultation
He will continue his usual antihypertensives and statin
Due to prophylaxis -on Eliquis for history of PE
CODE STATUS�full code
[2024-11-14] MEDS: STERILE WATER FOR INJECTION 20 ML IV (21:04)
[2024-11-14] MEDS: ROCEPHIN 2000 MG IV (21:04)
[2024-11-14] MEDS: VANCOCIN 530 MG IV (21:18)
--- NOTE | 2024-11-14 22:24 | PHA.VAN.IN ---
Assessment
- Assessment
Renal Function: Appears similar to baseline
Concomitant Antimicrobials: ceftriaxone 2 g IV Q24H
AUC Dosing Plan
- Empiric Dosing
Initial / Loading Dose: 1500 mg x 1
Maintenance Regimen: 1000 mg Q24H
Estimated AUC (mcg*h/mL): 527
Estimated Peak (mcg*h/mL): 35.7
Estimated Trough (mcg/ml): 12.2
Estimated Half Life (H): 14.8
- Monitoring
No levels ordered at this time: levels to be ordered after follow-up
Pharmacokinetics Vancomycin I
- -
Patient Age: 79
Patient Sex: Male
Vancomycin Day #: 1
Indication: Bone And Joint
Requesting Provider: Mariposa Velazquez
Pertinent Antimicrobial Allergies:
nkda
Height / Weight:
Height 5 ft 8 in
Actual Weight 58.23 kg
- Vital Signs / Lab Results
Temp Pulse Resp BP Pulse Ox
97.9 F 118 22 149/90 98
11/14/24 22:00 11/14/24 22:00 11/14/24 22:00 11/14/24 22:00 11/14/24 22:00
Lab Results - Hematology
11/14/24
15:40
WBC 14.2 H
Lab Results - Chemistry
11/14/24
15:40
BUN 16
Creatinine 1.0
Estimated Creat Clear 51
Albumin 3.9
11/14/24 11/14/24
15:40 21:22
Lactic Acid 2.9 H 2.3 H
[2024-11-14] MEDS: MYCOSTATIN ORAL SUSPENSION 5 ML PO (23:04)
[2024-11-15] MEDS: ROXICODONE 10 MG PO ×3 (00:29→17:16)
[2024-11-15] MEDS: VANCOCIN 200 IV (05:27)
[2024-11-15 07:08] LABS: Hematocrit 36.4 % (39.0-52.0); Hemoglobin 12.3 g/dL (13.0-18.0); Mean Corp Hgb Conc. 33.8 g/dL (33.0-37.0); Mean Corpuscular Volume 96.6 fL (80.0-94.0); Platelet Count 271 10^3/uL (130-400); Red Cell Dist. Width 12.7 % (11.5-14.5)
[2024-11-15 07:19] LABS: Calcium 8.7 mg/dl (8.4-10.2); Carbon Dioxide 19 mmol/L (22-30); Chloride 108 mmol/L (98-107); Estimated Creatinine Clearance 63 ml/min; Glucose 106 mg/dl (70-99); Magnesium 1.6 mg/dl (1.6-2.3); Potassium 4.3 mmol/L (3.5-5.1); Sodium 137 mmol/L (135-145); eGFR > 60.00
[2024-11-15 07:29] LABS: Blood Urea Nitrogen 14 mg/dl (9-20)
--- NOTE | 2024-11-15 08:14 | VNURNOTE ---
Chart reviewed. Patient is current with [facility]. Will continue to follow hospital course and DC plans.
[2024-11-15 08:18] VITALS: BP 138/77
--- NOTE | 2024-11-15 08:20 | PHA.VAN.FU ---
Vancomycin Assessment / Plan
- Assessment
Renal Function: SCR Decreasing
WBC's are: Trending Down
In the past 24 hrs, patient has been: Afebrile
Concomitant Antimicrobials: CEFTRIAXONE
- Dosing Plan
Continue: VANCO 1250MG Q24H
New Regimen Predicts: AUC (558), Peak (41.4), Trough (11.2)
- Follow Up
Pharmacy will continue to follow.
Vancomycin Follow UP
- -
Patient Age: 79
Patient Sex: Male
Vancomycin Day #: 2
Indication: Bone And Joint
Requesting Provider: Mariposa Velazquez
Pertinent Antimicrobial Allergies:
nkda
Height / Weight:
Height 5 ft 8 in
Actual Weight 58.23 kg
- Vital Signs / Lab Results
Temp Pulse Resp BP Pulse Ox
97.9 F 91 18 138/77 94
11/15/24 08:18 11/15/24 08:18 11/15/24 08:18 11/15/24 08:18 11/15/24 08:18
Lab Results - Hematology
11/14/24 11/15/24
15:40 06:43
WBC 14.2 H 8.0
Lab Results - Chemistry
11/14/24 11/15/24
15:40 06:43
BUN 16 14
Creatinine 1.0 0.8
Estimated Creat Clear 51 63
Albumin 3.9
11/14/24 11/14/24 11/15/24
15:40 21:22 06:43
Lactic Acid 2.9 H 2.3 H 1.7
--- NOTE | 2024-11-15 08:34 | W.PN.HOSP.TC ---
Addendum entered and electronically signed by Trini Fajardo MD 11/15/24 10:40:
[facility] RN.
According to RN, asking for ortho CS for his recent periprosthetic R femur fracture.
Ortho CS placed.
called to update, calls not answered
Original Note:
Today's Communication/Plan
-
see A/P
Assessment / Plan
Assessment / Plan
HPI: 73-year-old M with past medical history significant for hyperlipidemia, hypertension, PE on anticoagulation, history of Crohn's disease, rheumatoid arthritis, recent periprosthetic R femur fracture (nonsurgically managed with toe-touch
weightbearing); presented to the emergency department with left upper extremity pain, swelling and redness (wrist and distal humerus).
There is no significant effusion noted.
On admission, he had leukocytosis of 14.2. Lactic acid elevated to 2.9. Elevated inflammatory markers with ESR of 80 and a CRP to as high has 200. \\
A/P:
# Left upper extremity pain, redness and swelling 2/2 cellulitis versus inflammatory or infectious arthritis.
# Resolved lactic acidosis on admission
Cannot rule out component of complex regional pain syndrome playing a role.
Follow blood cultures
Xray of LUE showed no fracture, no dislocation. Small joint effusion at the elbow, possibly reactive effusions with synovitis.
Check LUE US
Cont IV vancomycin and ceftriaxone 2g daily to cover for possible joint infection although cellulitis seems more likely versus inflammatory arthritis.
rheumatoid factor was sent, follow up
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
Pain control
ID consultation
Other medical conditions:
# HTN
# HLD
Continue his usual antihypertensives and statin
# h/o PE on anticoagulation Eliquis, cont
Due to prophylaxis -on Eliquis for history of PE
CODE STATUS�full code
total time 51 min
Anticipated Discharge: > 48 hours
Subjective/Interval History
-
Date of Service: November 15, 2024
Objective Data
-
Labs:
Laboratory Results
11/15/24
06:43
WBC 8.0
Hgb 12.3 L
Hct 36.4 L
Plt Count 271 D
Sodium 137
Potassium 4.3
Chloride 108 H
Carbon Dioxide 19 L
BUN 14
Creatinine 0.8
Glucose 106 H
Calcium 8.7
Vital Signs:
Vital Signs
Temp Pulse Resp BP Pulse Ox
36.6 C 91 18 138/77 94
11/15/24 08:18 11/15/24 08:18 11/15/24 08:18 11/15/24 08:18 11/15/24 08:18
I&O
11/14/24 11/15/24 11/16/24
06:59 06:59 06:59
Intake Total 2019
Output Total 600 / 600
Balance 1420 / 1420
Review of Systems
-
History Source: Patient
Musculoskeletal: Reports Other (L hand/wrist pain and swelling )
Physical Exam
-
General: Well Developed, Comfortable and Conversant
HEENT: Normocephalic and Atraumatic; Negative Oxygen
Respiratory: Clear to Auscultation and Non Labored Respirations; Negative Accessory Resp Muscle Use
Cardiac: Regular Rhythm and S1/S2
GI: Soft, Nontender, Nondistended and Normal Bowel Sounds
Musculoskeletal: Other (L wrist/hand swelling and tender with palpation, radial pulse intact )
Neuro: Awake and Alert
Psych: Calm and Intact Judgement/Insight
Data Reviewed
-
Diagnostic Radiology: Report Reviewed by me
Labs: Labs Reviewed by me
[2024-11-15] MEDS: ELIQUIS 5 MG PO ×2 (09:33→20:37)
[2024-11-15] MEDS: TOPROL XL 25 MG PO (09:34)
[2024-11-15] MEDS: LIPITOR 10 MG PO (09:34)
[2024-11-15] MEDS: TOPROL XL 50 MG PO (09:34)
[2024-11-15] MEDS: DELTASONE 10 MG PO (09:34)
[2024-11-15] MEDS: MYCOSTATIN ORAL SUSPENSION 5 ML PO ×4 (09:35→21:19)
[2024-11-15] MEDS: MAGNESIUM SULFATE 102 GRAMS IV (09:36)
[2024-11-15] MEDS: MS CONTIN (EXTENDED RELEASE) 60 MG PO ×2 (09:39→20:37)
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
[2024-11-15 15:00] VITALS: BP 143/75
--- NOTE | 2024-11-15 15:07 | CM ---
Patient seen at bedside on . Patient resides w/ spouse and their adult son in a 2 story home, 7 steps to enter from the outside. 12 or 13 stairs to the second floor where bed and bath are located. Patient was independent w/ ambulation prior to
last hospitalization. Patient has a walker, cane and wheelchair at home. Patient states that his is visually impaired. Patient had Inpatient rehab in the past following hip replacement at a facility in [place] and following the last admission
to [facility] with authorization from insurance.
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 Patient PCP is Dr. Olivia and he uses the [facility] on [address] in [place]. Patient plan is for discharge home with [facility]. Patient
hoping that he will be able to advance in his weight bearing status as he was to see Ortho on wednesday for that purpose. CM will continue to follow for discharge planning needs.
Plan; home with VN vs SNF; pending medical treatment plan.
--- NOTE | 2024-11-15 19:00 | CON.ORTHO ---
Consultation
-
Date/Time Consultation Performed: 11/15/2024 650 PM
Consultation - Orthopedics
History
HPI: 79-year-old male history of hepatitis C, rheumatoid arthritis, chronic kidney disease, Crohn's disease on prednisone presented to the emergency department complaints of left wrist pain and swelling. He was admitted to the hospitalist service.
Antibiotics was initiated for concern of cellulitis. Infectious disease was also consulted. Orthopedics was asked to evaluate the patient's wrist provide recommendations. This evening patient reports that he had atraumatic onset of redness
swelling to the left wrist. Denies trauma to the wrist. He reports that today he is actually feeling substantial improvement with regards to range of motion and swelling as well as redness. Reports the redness is largely resolved.
Allergies / Home Medications
Past medical history: Hypertension, hyperlipidemia, Crohn's disease, rheumatoid arthritis, CKD, depression anxiety, hepatitis C, prostate cancer, PE
Past surgical history: Knee arthroplasty, hip arthroplasty, wrist surgery, elbow fracture, hand surgery, cataracts, hernia
Social history: Non-smoker, medical marijuana, lives with family
Family history: Not pertinent
Allergy/AdvReac Type Severity Reaction Status Date / Time
No Known Allergies Allergy Verified 07/26/24 20:17
�Medication �Instructions �Recorded
atorvastatin 10 mg tablet 10 mg PO DAILY High Cholesterol 12/09/22
multivitamin 1 tab PO DAILY Supplement 12/09/22
apixaban 5 mg tablet (Eliquis) 5 mg PO BID Blood Clot 10/03/24
Prevention/Tx
metoprolol succinate 50 mg 25 mg PO HS Blood Pressure 10/03/24
tablet,extended release 24 hr
metoprolol succinate 50 mg 50 mg PO DAILY Blood Pressure 10/03/24
tablet,extended release 24 hr
prednisone 10 mg tablet 10 mg PO DAILY inflammation 10/03/24
Right hip Xray #1 ea 10/05/24
morphine 60 mg capsule,extended 60 mg PO BID #6 caps 10/05/24
release 24 hr multiphase (Avinza)
oxycodone 10 mg tablet 10 mg PO .EVERY 4 HRS PRN 11/14/24
Vital Signs / Lab Results
Temp Pulse Resp BP Pulse Ox
98.3 F 75 16 143/75 96
11/15/24 15:00 11/15/24 15:00 11/15/24 15:00 11/15/24 15:00 11/15/24 15:00
11/15/24 06:43
11/15/24 06:43
10 point review systems reviewed and negative unless otherwise stated
General: Pleasant, no acute distress at rest
Musculoskeletal left upper extremity
Skin intact, no erythema, there is no ecchymotic staining
There is swelling noted in hand and wrist although there is no palpable discrete areas of fluctuance
There is fairly discrete tenderness to palpation directly over the radiocarpal joint
Nontender to palpation over flexor tendons
There is limited range of motion with active wrist flexion extension as well as flexion extension of IP joints secondary to swelling and discomfort
Sensation is grossly intact to light touch in all dispositions distally
Tenodesis effect intact
Brisk cap refill
Diagnostic studies
X-rays forearm reviewed show no acute fractures.
Assessment / Plan
79-year-old male multiple medical comorbidities atraumatic onset left wrist swelling. Patient reports actually a fair amount of improvement today. There was some concern clinically for cellulitis versus inflammatory arthropathy versus septic
joint. Very low index of suspicion of septic joint given clinical examination. Patient has no erythema today. Will agree with infectious disease that this likely represents more of an inflammatory arthropathy type picture. Patient denies a
history of gout or pseudogout. I would recommend image guided aspiration of left radiocarpal joint for synovial fluid analysis to include Gram stain culture crystals cell count. Certainly if there is any concerning findings for septic arthritis,
patient would require surgical intervention although again I think this is less likely given his clinical picture. I would recommend immobilization was brace/splint, elevation and ice in the interim.
Please reach out questions or concerns
[2024-11-15 23:37] VITALS: BP 111/62
[2024-11-16] MEDS: ROXICODONE 10 MG PO ×2 (06:04→21:25)
--- NOTE | 2024-11-16 07:25 | W.PN.UPDATE ---
Update Note
Progress Note Update
Mr. Quick was seen in consult by Dr. Gamez for right hip periprosthetic femur fracture October 04, 2024. Recommendations were for him to be on toe down weightbearing right lower extremity with follow-up x-rays 2 weeks postinjury. Patient was
readmitted for swelling in his hand so x-rays right hip were obtained yesterday. He reports that his pain about the right hip has improved dramatically. He feels as though he is doing well. Examination of the right hip has well-healed surgical
incision. No warmth, erythema, pain, edema or ecchymosis. His hip range of motion has 95 degrees of flexion, internal rotation 10 degrees, external rotation 25 degrees and abduction 20 degrees all without pain. No shortening or external rotation
noted about the lower extremity. Calf is soft and nontender. Distal neurovascular was intact. X-rays of the right hip November 15, 2024 while here at [facility] show no significant change involving periprosthetic femur fracture. Do not
detect obvious settling of the femoral component. He does have callus formation around the periprosthetic femur fracture. He is only 2 weeks postinjury so recommend he continue with touchdown weightbearing right lower extremity. Conservative
treatment modalities for pain. Return to office 2 weeks for repeat x-ray and hopefully advance weightbearing.
[2024-11-16 07:26] LABS: Hematocrit 33.4 % (39.0-52.0); Hemoglobin 10.9 g/dL (13.0-18.0); Mean Corp Hgb Conc. 32.6 g/dL (33.0-37.0); Mean Corpuscular Volume 99.4 fL (80.0-94.0); Platelet Count 327 10^3/uL (130-400); Red Cell Dist. Width 12.6 % (11.5-14.5)
[2024-11-16 07:45] LABS: Blood Urea Nitrogen 13 mg/dl (9-20); Calcium 9.0 mg/dl (8.4-10.2); Carbon Dioxide 25 mmol/L (22-30); Chloride 109 mmol/L (98-107); Estimated Creatinine Clearance 50 ml/min; Glucose 102 mg/dl (70-99); Magnesium 1.9 mg/dl (1.6-2.3); Potassium 4.2 mmol/L (3.5-5.1); Sodium 139 mmol/L (135-145); eGFR > 60.00
[2024-11-16 08:09] VITALS: BP 136/84
[2024-11-16 08:12] LABS: C-Reactive Protein 252.40 mg/L (0.0-10.00)
--- NOTE | 2024-11-16 08:47 | W.PN.HOSP.TC ---
Today's Communication/Plan
-
see A/P
Assessment / Plan
Assessment / Plan
HPI: 73-year-old M with past medical history significant for hyperlipidemia, hypertension, PE on anticoagulation, history of Crohn's disease, rheumatoid arthritis, recent periprosthetic R femur fracture (nonsurgically managed with toe-touch
weightbearing); presented to the emergency department with left upper extremity pain, swelling and redness (wrist and distal humerus).
There is no significant effusion noted.
On admission, he had leukocytosis of 14.2. Lactic acid elevated to 2.9. Elevated inflammatory markers with ESR of 80 and a CRP to as high has 200. \\
A/P:
# Left upper extremity pain, redness and swelling, felt likely gout vs pseudogout per discussion with ID
# Resolved lactic acidosis on admission
Cannot rule out component of complex regional pain syndrome playing a role.
Admission blood cultures so far negative
Xray of LUE showed no fracture, no dislocation. Small joint effusion at the elbow, possibly reactive effusions with synovitis.
LUE US negative for DVT,
follow up non-vascular US for any possible area for aspiration
IR CS for aspiration eval. Follow up arthrocentesis if able to aspirate
Off Abx per ID
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
rheumatoid factor was sent, follow up
Pain control
ID on board
IR consulted, ortho consulted
# Recent R periprosthetic femur fracture
repeat XR 11/15 showed healing of periprosthetic right proximal femoral fracture with interval callus formation.
Cont nonsurgical managed with toe-touch weightbearing
PT OT eval
Other medical conditions:
# HTN
# HLD
Continue his usual antihypertensives and statin
# h/o PE on anticoagulation Eliquis, cont
Due to prophylaxis- on Eliquis for history of PE
CODE STATUS� full code
updated on the phone
total time 51 min
Anticipated Discharge: 24 - 48 hours
Subjective/Interval History
-
Date of Service: November 16, 2024
Objective Data
-
Labs:
Laboratory Results
11/16/24 11/16/24
06:31 06:32
WBC 7.9
Hgb 10.9 L
Hct 33.4 L
Plt Count 327 D
Sodium 139
Potassium 4.2
Chloride 109 H
Carbon Dioxide 25
BUN 13
Creatinine 1.0
Glucose 102 H
Calcium 9.0
Vital Signs:
Vital Signs
Temp Pulse Resp BP Pulse Ox
36.4 C 68 18 136/84 98
11/16/24 08:09 11/16/24 08:09 11/16/24 08:09 11/16/24 08:09 11/16/24 08:09
I&O
11/15/24 11/16/24 11/17/24
06:59 06:59 06:59
Intake Total 2019 / 2019 1140 / 1140
Output Total 600 / 600 700 / 700
Balance 1420 / 1420 440 / 440
Review of Systems
-
History Source: Patient
Musculoskeletal: Reports Other (L hand/wrist pain and swelling have improved )
Physical Exam
-
General: Well Developed, Comfortable and Conversant
HEENT: Normocephalic and Atraumatic; Negative Oxygen
Respiratory: Clear to Auscultation and Non Labored Respirations; Negative Accessory Resp Muscle Use
Cardiac: Regular Rhythm and S1/S2
GI: Soft, Nontender, Nondistended and Normal Bowel Sounds
Musculoskeletal: Other (L wrist/hand swelling has imrpoved, radial pulse intact )
Neuro: Awake and Alert
Psych: Calm and Intact Judgement/Insight
Data Reviewed
-
Diagnostic Radiology: Report Reviewed by me
Ultrasound: Report Reviewed by me
Labs: Labs Reviewed by me
--- NOTE | 2024-11-16 09:24 | W.PN.ID1 ---
Addendum entered and electronically signed by David Barrow DO 11/16/24 12:54:
I personally saw and evaluated the patient. I have reviewed the resident�s note and agree with findings and plan as documented in the resident�s note.
Continue to observe off antibiotics.
Await joint aspiration. Follow-up for clinical improvement on steroids.
Original Note:
Date of Service
Date of Service: November 16, 2024
Today's Communication
No Antibiotics at this time
Follow Arthrocentesis fluid studies
Monitor for clinical improvement
Assessment / Plan
71-year-old man with medical history of rheumatoid arthritis, Crohn's disease and hep C presented due to left upper extremity pain and swelling.
#Left wrist pain with upper extremity edema
#Suspect acute gout or other crystal deposition disease (such as CPPD)
- Not consistent with cellulitis given lack of erythema
#Elevated ESR
#Elevated CRP
HTN
HLD
Crohn's disease
Rheumatoid arthritis
Hx PE
CKD stage IIIa
Depression/anxiety
Right hip arthroplasty
Hx hep C
Hx prostate CA
Recommendations:
Erythema and edema improving at this time
No antibiotics at this time
IR consulted for aspiration/arthrocentesis
Leukocytosis noted on presentation but WBC count has normalized
Follow white count and temperature curve.
Monitor for further clinical improvement.
Chief Complaint
-: Other (Left wrist pain with upper extremity edema)
Subjective / Review of Systems
Patient seen this morning, was resting comfortably in his bed. Says that his swelling and erythema have much improved since when he came in. 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 Overall feeling much better is wondering if he needs to continue with antibiotics at this time. Does not report any fever or chills, shortness of breath or any nausea, vomiting, or abdominal pain at this time.
Review of Systems: No Fever, No Chills, No Cough, No Abdominal Pain and No Dysuria
Vital Signs / Physical Exam
Vital Signs
Vital Signs
Temp Pulse Resp BP Pulse Ox
97.6 F 68 18 136/84 98
11/16/24 08:09 11/16/24 08:09 11/16/24 08:09 11/16/24 08:09 11/16/24 08:09
Physical Exam
Constitutional: No Acute Distress and Non-toxic
Head: Normocephalic
Cardiovascular: Regular Rate and S1/S2
Pulmonary: Clear; Negative Wheezes or Rales
Gastrointestinal: Soft, Non Tender, Non Distended and Normal Bowel Sounds
Extremities: Other (Swelling of left upper extremity around the wrist, much improved from yesterday the patient able to move his hand)
Skin: Warm and Dry
Neurological: Awake, Alert, Oriented and AO x 3
Psychological: Calm
Objective Data
Lab Data
Lab Results
11/16/24 06:32
11/16/24 06:31
ESR 85 mm/hour (0-20) H 11/16/24 06:32
PT 17.9 Sec (11.4-14.6) H 11/14/24 15:40
INR 1.45 11/14/24 15:40
APTT 51.8 Sec (23.4-35.0) H 11/14/24 15:40
Estimated Creat Clear 50 ml/min 11/16/24 06:31
Lactic Acid 1.7 mmol/L (0.7-2.0) 11/15/24 06:43
Total Bilirubin 2.8 mg/dl (0.2-1.3) H 11/14/24 15:40
AST 19 U/L (17-59) 11/14/24 15:40
ALT < 10 U/L (0-50) 11/14/24 15:40
Alkaline Phosphatase 116 U/L (38-126) 11/14/24 15:40
C-Reactive Protein 252.40 mg/L (0.0-10.00) H 11/16/24 06:31
Most recent labs reviewed.
Microbiology: Report Reviewed
Micro Results:
11/14/24 22:20 MRSA Screen - Final
Nose No Methicillin Resistant Staphylococcus aureus isolated.
11/14/24 15:46 Blood Culture - Preliminary
Blood/Venous No Growth in 24 hours- Final report to follow
11/14/24 15:40 Blood Culture - Preliminary
Blood/Venous No Growth in 24 hours- Final report to follow
Imaging
11/14/2024 Forearm X-Ray (L 2-view): No radiographically demonstrable fracture. No dislocation. No osteolytic or blastic lesion. No bony destruction or periosteal reaction. No radiographic evidence of osteomyelitis. Degenerative changes of the wrist.
[2024-11-16] MEDS: MS CONTIN (EXTENDED RELEASE) 60 MG PO ×2 (09:25→20:06)
[2024-11-16] MEDS: TOPROL XL 25 MG PO (09:25)
[2024-11-16] MEDS: ELIQUIS 5 MG PO ×2 (09:25→20:06)
[2024-11-16] MEDS: DELTASONE 40 MG PO (09:25)
[2024-11-16] MEDS: LIPITOR 10 MG PO (09:26)
[2024-11-16] MEDS: MYCOSTATIN ORAL SUSPENSION 5 ML PO ×4 (09:27→21:25)
[2024-11-16] MEDS: TOPROL XL 50 MG PO (09:27)
[2024-11-16] MEDS: DELTASONE PO (09:30)
[2024-11-16 10:50] LABS: Rheumatoid Agglutinin Less Than 10 IU (<10 IU)
--- NOTE | 2024-11-16 13:43 | CM ---
Chart reviewed. Met with pt bedside. PT/OT ordered; therapist in room now. IR procedure pending for removal of fluid from LUE.
Plan: Home with [facility] with [facility].
[2024-11-16 14:07] VITALS: BP 144/82; PULSE 61
[2024-11-16 14:08] VITALS: BP 144/82; PULSE 61
[2024-11-16 15:24] VITALS: BP 91/60
[2024-11-16 16:22] VITALS: BP 101/55
[2024-11-16 20:33] LABS: Hepatitis C Antibody Reactive (Negative)
[2024-11-16 23:13] VITALS: BP 134/73
--- NOTE | 2024-11-17 08:47 | W.PN.HOSP.TC ---
Addendum entered and electronically signed by Trini Fajardo MD 11/17/24 09:23:
Informed by RN that pt has not had morning blood work taken (he is a hard stick). Asked me about the need for blood work today as he's cleared for DC.
Since pt has clinically improved (significantly), I am ok to not get blood work today.
Pt can check CBC, BMP and CRP in 1 week, result to his PCP
Original Note:
Today's Communication/Plan
-
DC home with HH
Assessment / Plan
Assessment / Plan
HPI: 73-year-old M with past medical history significant for hyperlipidemia, hypertension, PE on anticoagulation, history of Crohn's disease, rheumatoid arthritis, recent periprosthetic R femur fracture (nonsurgically managed with toe-touch
weightbearing); presented to the emergency department with left upper extremity pain, swelling and redness (wrist and distal humerus).
There is no significant effusion noted.
On admission, he had leukocytosis of 14.2. Lactic acid elevated to 2.9. Elevated inflammatory markers with ESR of 80 and a CRP to as high has 200. \\
A/P:
# Left upper extremity pain, redness and swelling, felt likely gout vs pseudogout per discussion with ID
# Resolved lactic acidosis on admission
Cannot rule out component of complex regional pain syndrome playing a role.
Admission blood cultures negative
Xray of LUE showed no fracture, no dislocation. Small joint effusion at the elbow, possibly reactive effusions with synovitis.
LUE US negative for DVT,
non-vascular US showed Moderate subcutaneous edema within the dorsum of the LEFT hand and wrist. No joint effusion appreciated, hence unable to perform arthrocentesis.
Off Abx per ID
Started empiric prednisone 40 mg for possible gout/pseudogout (could treat for 7 days total then go back to home dose at 10 mg daily)
rheumatoid factor negative
Pain control
ID on board,
d/w IR and ortho
# Recent R periprosthetic femur fracture
repeat XR 11/15 showed healing of periprosthetic right proximal femoral fracture with interval callus formation.
Cont nonsurgical managed with toe-touch weightbearing
PT OT eval recc HH
Other medical conditions:
# HTN
# HLD
Continue his usual antihypertensives and statin
# h/o PE on anticoagulation Eliquis, cont
Due to prophylaxis- on Eliquis for history of PE
CODE STATUS� full code
DW RN
left voicemail for
Anticipated Discharge: Today
Subjective/Interval History
-
Date of Service: November 17, 2024
Objective Data
-
Labs:
Laboratory Results
11/17/24
06:00
WBC Pending
Hgb Pending
Hct Pending
Plt Count Pending
Sodium Pending
Potassium Pending
Chloride Pending
Carbon Dioxide Pending
BUN Pending
Creatinine Pending
Glucose Pending
Calcium Pending
Vital Signs:
Vital Signs
Temp Pulse Resp BP Pulse Ox
36.7 C 58 16 134/73 97
11/16/24 23:13 11/16/24 23:13 11/16/24 23:13 11/16/24 23:13 11/16/24 23:13
I&O
11/16/24 11/17/24 11/18/24
06:59 06:59 06:59
Intake Total 1140 / 1140
Output Total 700 / 700 300 / 300
Balance 440 / 440 -300 / -300
Review of Systems
-
History Source: Patient
Musculoskeletal: Reports Other (L hand/wrist pain and swelling have significantly improved, almost back to normal )
Physical Exam
-
General: Well Developed, Comfortable and Conversant
HEENT: Normocephalic and Atraumatic; Negative Oxygen
Respiratory: Clear to Auscultation and Non Labored Respirations; Negative Accessory Resp Muscle Use
Cardiac: Regular Rhythm and S1/S2
GI: Soft, Nontender, Nondistended and Normal Bowel Sounds
Musculoskeletal: Other (L wrist/hand swelling has significantly improved, radial pulse intact )
Neuro: Awake and Alert
Psych: Calm and Intact Judgement/Insight
Data Reviewed
-
Diagnostic Radiology: Report Reviewed by me
Ultrasound: Report Reviewed by me
Labs: Labs Reviewed by me
[2024-11-17 08:54] VITALS: BP 156/68
[2024-11-17] MEDS: MS CONTIN (EXTENDED RELEASE) 60 MG PO (10:08)
[2024-11-17] MEDS: LIPITOR 10 MG PO (10:08)
[2024-11-17] MEDS: TOPROL XL 25 MG PO (10:08)
[2024-11-17] MEDS: ELIQUIS 5 MG PO (10:09)
[2024-11-17] MEDS: MYCOSTATIN ORAL SUSPENSION 5 ML PO ×2 (10:09→12:48)
[2024-11-17] MEDS: TOPROL XL 50 MG PO (10:09)
[2024-11-17] MEDS: DELTASONE 40 MG PO (10:09)
--- NOTE | 2024-11-17 11:39 | CM ---
Met with patient; reported that his 's friend will provide transport home; [facility] liaison notified of discharge plan
Plan: Discharge to home today with resumption of home health services from [facility]
--- NOTE | 2024-11-17 12:56 | W.DCSUMMARY ---
Discharge Summary
Discharge Data
Date of Admission: 11/14/24
Date of Discharge: 11/17/24
Total time spent discharging patient (in min): 40
-
Pending Results: No
Hospital Course
Principal Diagnosis:
Left upper extremity (hand and wrist) pain, redness and swelling, likely gout vs pseudogout.
Resolved lactic acidosis on admission
Chronic Diagnoses:�
Recent R periprosthetic femur fracture, healing
HTN
HLD
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
history of Crohn's disease,
rheumatoid arthritis
Consultations:�
Orthopedic
Infectious disease
Procedures:�
None
Clinical course:�
This is 73-year-old male with past medical history as stated above, who presented with left hand/wrist pain, swelling and redness. There was no significant effusion noted.
Problem 1:
Left upper extremity (hand and wrist) pain, redness and swelling, likely gout vs pseudogout.
His admission blood cultures were negative.
His LUE Xray showed no fracture, no dislocation, small joint effusion at the elbow, possibly reactive effusions with synovitis.
His LUE US was negative for DVT, and did not reveal any joint effusion that could be tapped, noted moderate subcutaneous edema within the dorsum of the LEFT hand and wrist.
He did receive antibiotic which was not continued per ID.
He was started with steroid with prednisone 40 mg for possible gout/pseudogout (plan to treat for 7 days total, then go back to his home dose at 10 mg daily).
He can check follow-up blood work, CBC/BMP/CRP, with his PCP in 1 week following discharge.
As for the rest of his medical problems, they were stable during his hospital stay.
Discharge Plan
-
Patient Disposition: Home with Home Care
Discharge Diagnosis/Procedures: # Left wrist redness and swelling, likely gout vs pseudogout;
# Resolved lactic acidosis on admission
Condition: Fair
Diet: As tolerated, Low Fat, Low Cholesterol and Low Sodium
Activity: With assistance
Driving Restrictions: Not until seen by your Dr
Blood Work: CBC, BMP, CRP
Referrals:
UNKNOWN - PT DOES,NOT KNOW [Family Provider] - in less than 1 week
Additional Discharge Medication Instructions: take prednisone 40 mg for 5 more days, then go back to your previous home dose at 10 mg daily
Prescriptions:
New
prednisone 20 mg Tablet
40 mg PO DAILY 5 Days Qty: 10 0RF
(DME) CBC with diff
See Rx Instructions .Route .MEDSUPPLY Qty: 1 0RF
Rx Instructions:
11/20 - 11/24, result to PCP
# L wrist possible gout
(DME) BMP
See Rx Instructions .Route .MEDSUPPLY Qty: 1 0RF
Rx Instructions:
11/20 - 11/24, result to PCP
# L wrist possible gout
(DME) CRP
See Rx Instructions .Route .MEDSUPPLY Qty: 1 0RF
Rx Instructions:
11/20 - 11/24, result to PCP
# L wrist possible gout
Continued
multivitamin Tablet
1 tab PO DAILY
atorvastatin 10 mg Tablet
10 mg PO DAILY
Eliquis 5 MG tablet
5 mg PO BID
metoprolol succinate 50 mg tablet extended release 24 hr
50 mg PO DAILY
metoprolol succinate 50 mg tablet extended release 24 hr
25 mg PO HS
morphine [Avinza] 60 mg capsule, ER multiphase 24 hr
60 mg PO BID Qty: 6 0RF
oxycodone 10 mg tablet
10 mg PO .EVERY 4 HRS PRN
Held
prednisone 10 mg tablet
10 mg PO DAILY
Hold Instructions: Resume on 11/22/24. hold while on prednisone 40 mg daily
No Action
(DME) Right hip Xray
See Rx Instructions .Route .MEDSUPPLY Qty: 1 0RF
Rx Instructions:
Right hip XRAY in 2 weeks
Dx : right femur periprosthetic fracture
Forward result to Dr Nelson Gamez's office
Discharge Orders:
Discharge Patient (As Directed); Ordered 11/17/24
Ordered By: Trini Fajardo
Discharge Date and Time
Print Language: IRISH
[2024-11-17 13:06] VITALS: BP 124/69
== END 2024-11-17 13:59 | disposition home health service (06) | DRG 554 ==
LOC: 4 EAST ACU 21:27
PROVIDERS: Emergency Medicine; ADMITTING PHYSICIAN Internal Medicine; ATTENDING PHYSICIAN Internal Medicine; EMERGENCY PHYSICIAN Emergency Medicine; OTHER PHYSICIAN Internal Medicine Infectious Disease; OTHER PHYSICIAN Orthopaedic Surgery
DX: M1A.0320 Idiopathic chronic gout, left wrist, without tophus (tophi) (principal); N17.9 Acute kidney failure, unspecified; K50.90 Crohn's disease, unspecified, without complications; E87.20 Acidosis, unspecified; E78.00 Pure hypercholesterolemia, unspecified; I48.91 Unspecified atrial fibrillation; I12.9 Hypertensive chronic kidney disease with stage 1 through stage 4 chronic kidney disease, or unspecified chronic kidney disease; N18.31 Chronic kidney disease, stage 3a; K44.9 Diaphragmatic hernia without obstruction or gangrene; K21.9 Gastro-esophageal reflux disease without esophagitis; F32.A Depression, unspecified; M19.90 Unspecified osteoarthritis, unspecified site; R13.10 Dysphagia, unspecified; M06.9 Rheumatoid arthritis, unspecified; F41.9 Anxiety disorder, unspecified; Z96.641 Presence of right artificial hip joint; Z96.653 Presence of artificial knee joint, bilateral; S72.91XD Unspecified fracture of right femur, subsequent encounter for closed fracture with routine healing; M97.01XD Periprosthetic fracture around internal prosthetic right hip joint, subsequent encounter; V19.40XD Pedal cycle driver injured in collision with unspecified motor vehicles in traffic accident, subsequent encounter; Z98.1 Arthrodesis status; Z87.01 Personal history of pneumonia (recurrent); Z86.73 Personal history of transient ischemic attack (TIA), and cerebral infarction without residual deficits; Z86.718 Personal history of other venous thrombosis and embolism; Z79.01 Long term (current) use of anticoagulants; Z86.711 Personal history of pulmonary embolism; Z87.19 Personal history of other diseases of the digestive system; Z80.41 Family history of malignant neoplasm of ovary; Z85.46 Personal history of malignant neoplasm of prostate; Z79.52 Long term (current) use of systemic steroids
CPT/HCPCS: 73060; 73090; 73502; 76882; 80048; 80053; 83605; 83735; 85025; 85027; 85610; 85652; 85730; 86140; 86430; 86803; 87040; 87070; 93005; 93971; 96361; 96365; 96375; 97162; 97166; 99285